=== PATIENT | female | born 2005 | race Caucasian/White ===

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

== ENCOUNTER 2023-09-21 16:26 | Emergency (ER) | payer MEDICAID, SELFPAY ==
[2023-09-21 16:27] VITALS: BP 129/79; PULSE 81; RESP 16; TEMP 36.4; O2SAT 100; BMI 28.3
--- NOTE | 2023-09-21 16:57 | EDS_ITS ---
HPI History of Present Illness Chief Complaint: General Illness Informant: patient and parent Narrative Narrative: 17-year-old female presenting to the emergency room with vomiting. Patient states that yesterday she was at work at the local [employer] where the area she was working in temperature was approaching 80 degrees. She states that after working for a while she began to get she will and needed to leave work. She has subsequently developed vomiting and nausea. She denies any abdominal pain. No cough runny nose sore throat or earache. She denies any rash. No diarrhea. She states that she has a frontal headache. She has been trying to drink fluids it has been difficult with the nausea. She does have concerns that she may be . No known sick contacts. [facility] Medical History Physical exam, pre-employment Home Medications ?Medication ?Instructions ?Recorded ?Last Taken ?Type ondansetron 4 mg disintegrating 4 mg PO Q6H PRN PRN Nausea #10 tabs 09/21/23 Unknown Rx tablet Allergy/AdvReac Type Severity Reaction Status Date / Time No Known Allergies Allergy Verified 09/21/23 16:26 Social History household members: family Smoking Status: Never smoker alcohol intake: never substance use type: does not use ROS ROS ED Constitutional Constitutional ED: Reports chills; Denies fever(s) or weight loss Eyes Eyes: Denies change in vision or diplopia ENT ENT ED: Denies ear pain, rhinorrhea or sore throat Cardiovascular Cardiovascular: Denies chest pain, orthopnea, palpitations or racing heartbeat Respiratory/Chest Respiratory/Chest: Denies cough, dyspnea or orthopnea Gastrointestinal Gastrointestinal: Reports nausea and vomiting; Denies abdominal pain or diarrhea Genitourinary Genitourinary ED: Denies dysuria, hematuria or urinary frequency Musculoskeletal Musculoskeletal: Denies arthralgias or myalgias Integumentary Denies abscess or rash Neurologic Neurologic: Reports headache(s); Denies weakness Psychiatric Psychiatric: Denies anxiety, depression, suicidal ideation or suicidal thoughts Endocrine Endocrinology: Denies polydipsia, polyphagia or polyuria Allergic/Immunologic Allergic/Immunologic ED: Denies mouth swelling, tongue swelling or urticaria EXAM Physical Exam Narrative Exam Narrative: Well-appearing 17-year-old female sitting comfortably in the bed. Patient is in not acute distress. Const Vital Signs: 09/21/23 16:27 09/21/23 16:29 09/21/23 18:29 Temperature 97.6 F L Temperature Source Temporal Pulse Rate 81 66 Respiratory Rate 16 16 Respiratory Effort Normal Respiratory Pattern Normal Blood Pressure 129/79 H 119/70 Blood Pressure Mean 95 86 Pulse Ox 100 100 Oxygen Delivery Method Room Air Room Air Positive well nourished and well developed General Appearance ED: well developed HEENT Reports normocephalic, head/scalp atraumatic and moist mucous membranes Eyes PERRL and EOMs intact bilaterally Eyes Narrative: No photophobia. Neck full ROM, No nuchal rigidity, no lymphadenopathy, supple, no meningeal signs and no JVD Resp normal respiratory effort and clear to auscultation bilaterally Cardio regular rate, regular rhythm and no murmurs GI normal to inspection, nondistended, normoactive bowel sounds and non-tender Palpation: soft Back/Spine no CVA tenderness and normal ROM Extremity normal to inspection General Extremety ED: Negative for edema General Extremity: Negative for edema Neuro oriented x3 and CN's II-XII intact bilaterally Sensorium / Orientation: alert Motor Exam: strength 5/5 throughout Psych mental status grossly normal Mood & Affect: Negative for depressed or tearful Skin no rashes or lesions noted and no wounds MDM MDM MDM Narrative Medical decision making narrative: Differential diagnosis includes but not limited to dehydration, heat exhaustion, viral illness, pancreatitis, biliary colic, colitis pancreatitis. IV established patient received Zofran and IV fluids. White count 5.8 hemoglobin 15.7. BMP within normal limits. LFTs and lipase normal. Urinalysis shows no overt infection. test is negative. Patient received a dose of Toradol for headache. COVID influenza and RSV swabs were obtained and were negative. At this point patient be discharged home with a prescription for Zofran. Would recommend rest continued oral hydration. History & Record Review Discussion w/independent historian: Patient and Family Lab Data Attestation: I reviewed the patient's lab results. Labs: Laboratory Results - last 24 hr 09/21/23 17:12 WBC 5.8 RBC 5.35 Hgb 15.7 H Hct 46.9 MCV 87.7 MCH 29.3 MCHC 33.5 RDW Std Deviation 39.2 RDW Coeff of Alecia 12.1 Plt Count 241 MPV 11.8 Immature Gran % (Auto) 0.300 Neut % (Auto) 67.9 Lymph % (Auto) 22.2 [place] % (Auto) 8.4 Eos % (Auto) 0.9 Baso % (Auto) 0.3 Absolute Neuts (auto) 4.0 Absolute Lymphs (auto) 1.29 Nucleated RBC % 0 Sodium 138 Potassium 3.8 Chloride 105 Carbon Dioxide 27.0 Anion Gap 6 BUN 9 Creatinine 0.65 Estim Creat Clear Calc 132.73 Est GFR (MDRD) Af Amer 150 Est GFR (MDRD) Non-Af 124 BUN/Creatinine Ratio 13.9 Glucose 106 Calcium 9.6 Total Bilirubin 0.50 Direct Bilirubin 0.12 AST 20 ALT 22 Alkaline Phosphatase 52 Total Protein 7.9 Albumin 4.3 Globulin 3.6 Lipase 28 Serum , Qual NEGATIVE Urine Color Yellow Urine Clarity Clear Urine pH 7.0 Ur Specific Hector 1.010 Urine Protein Negative Urine Glucose (UA) Normal Urine Ketones Negative Urine Occult Blood 10 H Urine Nitrite Negative Urine Bilirubin Negative Urine Urobilinogen Normal Ur Leukocyte Esterase 100 H Urine RBC 0 SEEN Urine WBC 0-5 SEEN Ur Squamous Epith Cells 0-5 SEEN Urine Bacteria RARE Urine Mucus 0 SEEN Discharge Plan Triage Chief Complaint: General Illness ED Provider: Tonio Marinelli Dx/Rx/DC Orders Clinical Impression: Vomiting Instructions: ED Vomiting (Adult) Prescriptions: New ondansetron 4 mg tablet,disintegrating 4 mg PO Q6H PRN PRN (Reason: Nausea) Qty: 10 0RF Primary Care Provider: Vernell Lam Referrals: Vernell Lam MD [Primary Care Provider] - As Needed Print Language: Yoruba Disposition Disposition: Home, Self Care
[2023-09-21] MEDS: 0.9% Normal Saline (1000mL) 1,000 ML 1000 ML IV (17:05)
[2023-09-21] MEDS: Ondansetron 4 MG/2 ML Vial IV (17:05)
[2023-09-21 17:15] LABS: Mucous, Urine 0 SEEN /hpf (<or=2+); Red Blood Cells-Urine 0 SEEN /hpf (0-5)
[2023-09-21 17:18] LABS: Color, Urine Yellow (Yellow); Glucose, Dipstick Normal (Normal); Ketone-Dipstick Negative (Negative); Leukocyte Esterase-Dipstick 100 /ul (Negative); Nitrite-Dipstick Negative (Negative); Occult Blood-Urine 10 /ul (Negative); Protein-Dipstick Negative (Negative); Urine Bilirubin Dipstick Negative (Negative); Urine Clarity Clear (Clear); Urine Urobilinogen Normal (Normal)
[2023-09-21 17:25] LABS: Internal QC Validated? YES +Cl - CLEAR BKGD; Pregnancy, Serum, hCG Quali. NEGATIVE Negative
[2023-09-21 17:26] LABS: Absolute Lymphocyte Count 1.29 X10^3/uL (0.83-4.51); Basophil# 0.02 X10^3/uL; Basophil% 0.3 % (0-1); Eosinophil# 0.05 X10^3/uL; Eosinophils% 0.9 % (0-5); Hematocrit 46.9 % (37-47); Hemoglobin 15.7 g/dL (12.0-15.0); Lymphocyte # 1.29 X10^3/ul (0.83-4.51); Lymphocyte % 22.2 % (19-41); Mean Corp Hgb Conc 33.5 g/dL (32-36); Mean Corpuscular Hgb 29.3 pg (27.0-32.0); Mean Corpuscular Volume 87.7 fL (81-99); Mean Platelet Vol. 11.8 fl (6.2-12.0); Monocyte# 0.49 X10^3/uL; Monocyte% 8.4 % (0-10); NRBC Flagged by Analyzer 0 % (0-5); Neutrophil # 3.95 X10^3/uL (2.7-7.7); Neutrophil % 67.9 % (47-70); Platelet Count 241 K/mm3 (150-450); RBC Distribution Width CV 12.1 % (11.6-14.6); RBC Distribution Width SD 39.2 fl (35.1-43.9); Red Blood Count 5.35 M/mm3 (4.2-5.4); White Blood Count 5.8 K/mm3 (4.4-11.0)
[2023-09-21 17:33] LABS: AST(SGOT) 20 U/L (15-37); Alanine Aminotransfer ALT/SGPT 22 U/L (13-56); Albumin, Serum 4.3 g/dL (3.2-5.0); Alkaline Phosphatase 52 U/L (45-117); Anion Gap 6 (5-15); BUN 9 mg/dL (7-18); BUN/Creat Ratio 13.9 RATIO (10-20); Bilirubin, Direct 0.12 mg/dL (0.00-0.30); Calcium,Total 9.6 mg/dL (8.5-10.1); Chloride 105 mmol/L (98-107); Creatinine, Serum 0.65 mg/dL (0.55-1.02); EST Glomerular Filtration Rate 124 mL/min (>60); Est Glom Filt Rate - Afr Amer 150 mL/min (>60); Estimated Creatinine Clearance 132.73 ml/min; Globulin 3.6 g/dL (2.2-4.2); Glucose 106 mg/dL (74-106); Lipase 28 U/L (13-75); Potassium 3.8 mmol/L (3.5-5.1); Protein, Total 7.9 g/dL (6.4-8.2); Sodium Level 138 mmol/L (136-145)
[2023-09-21 17:35] LABS: Bacteria RARE /hpf (None Seen); Squamous Epithelial Cells - UA 0-5 SEEN /hpf (5-10); White Blood Cells 0-5 SEEN /hpf (0-5)
[2023-09-21 18:29] VITALS: BP 119/70; PULSE 66; RESP 16; O2SAT 100
[2023-09-21] MEDS: Ketorolac 30 MG/ML Syringe IV (18:36)
[2023-09-21 19:27] VITALS: BP 110/75; PULSE 60; RESP 16; TEMP 36.6; O2SAT 100
== END 2023-09-21 19:28 | disposition home or self-care (01) ==
PROVIDERS: Emergency Provider Emergency Medicine; PCP Pediatrics; Visit Provider Emergency Medicine
DX: R11.2 Nausea with vomiting, unspecified (principal)
CPT/HCPCS: 80048; 80076; 81001; 83690; 84703; 85025; 87631; 96361; 96374; 96375; 99284; J7030; A4216; J2405

== ENCOUNTER 2023-10-26 11:20 | Emergency (ER) | payer OTHER, MEDICAID, SELFPAY ==
[2023-10-26 11:21] VITALS: BP 128/76; PULSE 92; RESP 14; TEMP 36.1; O2SAT 99
[2023-10-26 11:32] VITALS: O2SAT 98
--- NOTE | 2023-10-26 11:42 | CT_ITS ---
STUDY: CT BRAIN WITHOUT CONTRAST REASON FOR EXAM: Female, 18 years old. Injury RADIATION DOSAGE (If Supplied By Facility): CTDIvol = ( 45 ) mGy, DLP = ( 779 ) mGycm TECHNIQUE: Transaxial CT imaging of the brain was performed without administration of intravenous contrast material. Individualized dose optimization techniques were used for this CT. COMPARISON: No relevant prior comparison study available FINDINGS: PARENCHYMA: There is no acute bleed or infarct. There are normal white matter tracts. VENTRICLES: There is no hydrocephalus. MASTOID AIR CELLS AND PARANASAL SINUSES: The visualized paranasal sinuses are clear. The mastoid air cells are clear. BONES: There is no skull fracture. SOFT TISSUES: The visualized soft tissues are within normal limits. CT/Brain/Head without Contrast IMPRESSION: No acute intracranial abnormality. Electronically Signed: Narendra Coppola MD at 12:20 EDT ,
--- NOTE | 2023-10-26 13:13 | EX.ED.GENINJ ---
HPI History of Present Illness Chief Complaint: Head Injury Informant: patient Onset/Context/Timing Onset: Today Narrative Narrative: Patient presents from work secondary to head injury. She was helping a resident onto the commode. She reached for some gloves and hit her head on a metal bar behind the toilet. She complains of pain over the apex of her head and feels off balance when she walks. She states she did take some Tylenol for headache and it does seem to be improving. [facility] Medical History Physical exam, pre-employment Home Medications ?Medication ?Instructions ?Recorded ?Last Taken ?Type ondansetron 4 mg disintegrating 4 mg PO Q6H PRN PRN Nausea #10 tabs 09/21/23 Unknown Rx tablet Allergy/AdvReac Type Severity Reaction Status Date / Time No Known Allergies Allergy Verified 10/26/23 11:25 Social History household members: family Smoking Status: Never smoker alcohol intake: never substance use type: does not use ROS ROS ED Constitutional Constitutional ED: Denies chills or fever(s) Eyes Eyes: Denies change in vision ENT ENT ED: Denies rhinorrhea or sore throat Cardiovascular Cardiovascular: Denies chest pain or palpitations Respiratory/Chest Respiratory/Chest: Denies cough or dyspnea Gastrointestinal Gastrointestinal: Denies abdominal pain, nausea or vomiting Genitourinary Genitourinary ED: Denies dysuria Musculoskeletal Musculoskeletal: Denies back pain or extremity pain Integumentary Denies Abrasions or rash Neurologic Neurologic: Reports other Details: Feels off balance ; Denies headache(s) or weakness Psychiatric Psychiatric: Denies anxiety or depression Allergic/Immunologic Allergic/Immunologic ED: Denies lip swelling or urticaria EXAM Physical Exam Const Vital Signs: 10/26/23 11:21 10/26/23 11:32 Temperature 97 F L Temperature Source Temporal Pulse Rate 92 Respiratory Rate 14 Respiratory Effort Normal Blood Pressure 128/76 H Blood Pressure Mean 93 Pulse Ox 99 98 Oxygen Delivery Method Room Air Room Air Positive well nourished and well developed General Appearance ED: well developed HEENT HEENT Narrative: Mild scalp tenderness over the midline parietal scalp. No hematoma, ecchymosis, or abrasion. Eyes EOMs intact bilaterally Neck full ROM Neck Narrative: No C-spine tenderness. Chest Wall inspection of chest normal and palpation of chest normal Resp normal respiratory effort and clear to auscultation bilaterally Cardio regular rhythm Rate: regular rate GI non-tender Palpation: soft Back/Spine normal to inspection Extremity normal to inspection Neuro oriented x3 and moves all extremities Psych mental status grossly normal Skin no rashes or lesions noted MDM MDM MDM Narrative Medical decision making narrative: CT scan of the head obtained. No acute intracranial abnormality noted on read. Test results discussed with the patient. We did discuss mild concussion symptoms. She can return to work and was able to sit or stand as needed for comfort. She can take Tylenol or ibuprofen as needed for headache. She will follow-up with [facility]. Radiography Diagnostic Testing: Clinical Impression(s) from Imaging Studies Brain CT 10/26/23 11:42 IMPRESSION: No acute intracranial abnormality. Electronically Signed: Narendra Coppola MD at 12:20 EDT Reading Location ID and State: [facility] / [place] Tel , Service support , Discharge Plan Triage Chief Complaint: Head Injury ED Provider: Gricelda Carreon Dx/Rx/DC Orders Clinical Impression: Closed head injury Instructions: ED Concussion, ED Head Injury (Adult) Prescriptions: No Action ondansetron 4 mg tablet,disintegrating 4 mg PO Q6H PRN PRN (Reason: Nausea) Qty: 10 0RF Stand Alone Forms: Work Status Form Primary Care Provider: Vernell Lam Referrals: Corporate,[facility] [Group of Physicians] - 3-5 Days Vernell Lam MD [Primary Care Provider] - Print Language: Wolof Disposition Disposition: Home, Self Care
[2023-10-26 13:25] VITALS: BP 107/69; PULSE 64; RESP 16; TEMP 36.2; O2SAT 100
== END 2023-10-26 13:26 | disposition home or self-care (01) ==
PROVIDERS: Emergency Provider Emergency Medicine; PCP Pediatrics; Visit Provider Emergency Medicine
DX: S09.90XA Unspecified injury of head, initial encounter (principal); W22.09XA Striking against other stationary object, initial encounter; Y93.F9 Activity, other caregiving; Y99.0 Civilian activity done for income or pay
CPT/HCPCS: 70450; 99282

== ENCOUNTER 2024-05-18 11:45 | Emergency (ER) | payer MEDICAID, SELFPAY ==
[2024-05-18 11:46] VITALS: BP 130/79; PULSE 113; PULSE 122; RESP 20; TEMP 36.1; O2SAT 100
[2024-05-18 12:00] VITALS: BMI 28.5
[2024-05-18] MEDS: Lidocaine 1% /Epi 1:100 (20ml) 20 ML Vial INFILT (12:18)
--- NOTE | 2024-05-18 12:47 | EDS_ITS ---
HPI History of Present Illness Chief Complaint: Other, Pain/Inj Narrative Narrative: Chief complaint and HPI: Infected pilonidal cyst. 18-year-old female with no significant past medical history except for previous pilonidal cyst presents for evaluation of infected pilonidal cyst. Patient states several years ago she was diagnosed with a pilonidal cyst that became infected. She states that she had an incision and drainage in the emergency department without any difficulty. She is never followed up with a surgeon. She states over the last several days the area has become more swollen, red, tender which is why she presents she denies any fever, chills, nausea, vomiting, diarrhea, constipation. Review of systems: See HPI Medications: As listed on the chart Allergies: As listed on the chart PFSH: Per chart Vital signs: As listed on the chart. Reviewed. Physical exam: Gen: A&O x3, NAD Head: Normocephalic, atraumatic Eyes: No sclera icterus, conjunctiva clear ENT: Moist mucous membranes CV: Regular Resp: Nonlabored respiration GI: Abd soft, non-distended, non-tender, no r/r/g Musc: Full ROM, no deformity, patient has a 3 x 2 cm pilonidal cyst that is tender, erythematous, warm, and fluctuant Skin: Warm, dry Neuro: Alert, oriented, grossly intact, sensation intact Psych: Cooperative, appropriate mood and affect [facility] Medical History (Updated 05/18/24 @ 12:[address] Carter Rahman DO) Anxiety Physical exam, pre-employment Home Medications ?Medication ?Instructions ?Recorded ?Last Taken ?Type ondansetron 4 mg disintegrating 4 mg PO Q6H PRN PRN Nausea #10 tabs 09/21/23 Unknown Rx tablet Allergy/AdvReac Type Severity Reaction Status Date / Time No Known Allergies Allergy Verified 05/18/24 11:46 Social History household members: family Smoking Status: Never smoker alcohol intake: never substance use type: does not use EXAM Physical Exam Const Vital Signs: 05/18/24 11:46 05/18/24 11:46 05/18/24 11:59 Temperature 97 F L Temperature Source Temporal Pulse Rate 113 H 122 H Respiratory Rate 20 H Respiratory Effort Normal Non-Labored Respiratory Pattern Normal Blood Pressure 130/79 H Blood Pressure Mean 96 Pulse Ox 100 Oxygen Delivery Method Room Air MDM MDM MDM Narrative Medical decision making narrative: 18-year-old female with no significant past medical history except for previous pilonidal cyst presents for evaluation of infected pilonidal cyst. See physical exam findings. Patient will require an incision and drainage of her pilonidal cyst. Given that this has been recurrent. She will need to follow-up with [facility] surgery for surgical incision/removal in the future. She confirmed understanding. Patient tolerated incision and drainage well. Packing was placed. She was educated that packing needs to be removed in 24 hours. Okay to shower. Motrin Tylenol as needed for pain. Monitor for signs of infection. Follow-up with general surgery. Return precautions explained. She confirmed understanding of plan. Incision and Drainage Indication: 3 cm x 2 centimeter infected pilonidal cyst Consent: Risks, benefits, and alternatives discussed with patient and consent obtained Procedure: A timeout was performed verifying correct patient, procedure, site, and positioning. The area was prepared and draped in the usual sterile manner. The site was anesthetized with 1% lidocaine with epinephrine. A linear incision was made in the skin where previous scar is and copious malodorous purulent material was expressed. The abscess was explored thoroughly, and sequestered pockets were opened. The abscess pocket was irrigated. Bleeding was minimal. The patient tolerated the procedure well without complications. Packin/2 inch iodoform packing Follow-Up: Standard post-procedure care was explained and return precautions were given Impression: 1. Infected pilonidal cyst Discharge Plan Triage Chief Complaint: Other, Pain/Inj ED Provider: Carter Rahman Dx/Rx/DC Orders Clinical Impression: Infected pilonidal cyst Instructions: ED Pilonidal Cyst Infec I&D Prescriptions: No Action ondansetron 4 mg tablet,disintegrating 4 mg PO Q6H PRN PRN (Reason: Nausea) Qty: 10 0RF Stand Alone Forms: ED Work / School Excuse, Work Status Form Primary Care Provider: Vernell Lam Referrals: Vernell Lam MD [Primary Care Provider] - 3-5 Days Alex Weber MD [Med Staff - Active Staff] - 3-5 Days Activity Restrictions/Additional Instructions: No swimming pools, hot tubs, lakes, ureña until fully healed. Okay to shower in 24 hours. Pull packing out in 24 hours. Dressing as needed. Monitor for recurrent signs of infection. Motrin and Tylenol as needed for pain. Follow-up with general surgery for pilonidal cyst removal. Return back to the ED if symptoms change or worsen. Print Language: Pashto Disposition Disposition: Home, Self Care
== END 2024-05-18 12:56 | disposition home or self-care (01) ==
PROVIDERS: Emergency Provider Surgery; PCP Pediatrics; Visit Provider Surgery
DX: L05.01 Pilonidal cyst with abscess (principal)
CPT/HCPCS: 10080; 99283; A4216

== ENCOUNTER 2024-12-23 11:00 | Emergency (ER) | payer SELFPAY ==
[2024-12-23 11:00] VITALS: BP 133/81; PULSE 101; PULSE 111; RESP 14; TEMP 36.2; O2SAT 98; BMI 30.9
--- NOTE | 2024-12-23 11:15 | EX.ED.DYSGE1 ---
HPI <GAMALIEL Chilel - Last Filed: 12/23/24 11:42> History of Present Illness Chief Complaint: Anxiety Narrative Narrative: 19-year-old female states her anxiety has been increasing and she had an anxiety attack last night and this morning at work. With both episodes the right side of her face felt numb and tingly. The right sided paresthesias were worse at work and seem to be resolving now that she has arrived here. She does not take any medications or anything for anxiety. She denies chest pain, shortness of breath, nausea or vomiting. She has no visual or speech changes and no symptoms in her arms or legs. [facility] <GAMALIEL Chilel - Last Filed: 12/23/24 11:42> [facility] Medical History (Updated 12/23/24 @ 11:19 by GAMALIEL Chilel) Anxiety Physical exam, pre-employment Home Medications ?Medication ?Instructions ?Recorded ?Last Taken ?Type hydroxyzine HCl 50 mg tablet 50 mg PO BID PRN anxiety #10 tabs 12/23/24 Unknown Rx Allergy/AdvReac Type Severity Reaction Status Date / Time No Known Allergies Allergy Verified 12/23/24 11:00 Social History household members: family Smoking Status: Never smoker alcohol intake: never substance use type: does not use ROS <GAMALIEL Chilel - Last Filed: 12/23/24 11:42> ROS ED ROS Narrative Constitutional: Negative for fever, chills, malaise. Eyes: Negative for visual change. CVS: Negative for chest pain Respiratory: Negative for shortness of breath. GI: Negative for abdominal pain, nausea, vomiting. Neuro: Negative for headache. EXAM <GAMALIEL Chilel - Last Filed: 12/23/24 11:42> Physical Exam Narrative Exam Narrative: CONST: Patient sitting in no acute distress. EYES: Normal inspection. PERRL, EOMI. NECK: Normal inspection. RESP: No respiratory distress, CTAB. CVS: Regular rate and rhythm, no murmur, no gallop. SKIN: Color normal, no rash, warm, dry, intact. EXTREMITIES: Normal appearance, no pedal edema. NEURO: Alert and answering questions appropriately. Face symmetric, cranial nerves II through XII grossly intact. Normal sensation to light touch on both sides of her face in all dermatomes. No upper or lower extremity drift, normal [id number] and [id number], normal speech. PSYCH: Normal affect. Const Vital Signs: 12/23/24 11:00 12/23/24 11:00 Temperature 97.1 F L Temperature Source Temporal Pulse Rate 101 H 111 H Respiratory Rate 14 Blood Pressure 133/81 H Blood Pressure Mean 98 Pulse Ox 98 Oxygen Delivery Method Room Air <Dr. James Jaime MD - Last Filed: 12/23/24 11:41> Physical Exam Const Vital Signs: 12/23/24 11:00 12/23/24 11:00 Temperature 97.1 F L Temperature Source Temporal Pulse Rate 101 H 111 H Respiratory Rate 14 Blood Pressure 133/81 H Blood Pressure Mean 98 Pulse Ox 98 Oxygen Delivery Method Room Air MDM <GAMALIEL Chilel - Last Filed: 12/23/24 11:42> [facility] MDM Narrative Medical decision making narrative: History gathered from: Patient, mom 19-year-old female states she has episodes of an anxiety attack and hyperventilation and then developed right-sided facial numbness and tingling that resolved. This is occurred twice in the last 24 hours. She has no other neurological symptoms, no visual changes, no headache. She is awake and alert no distress. She is calm while speaking to me and states her symptoms are resolving. She can feel me touching both sides of her face equally. She has a completely normal neurological exam with NIH of 0. I think this is an anxiety reaction and am not concerned for stroke or evangelista's palsy. I recommended PCP follow up and prescribed hydroxyzine as needed. History & Record Review Discussion w/independent historian: Patient and Family Additional record(s) reviewed:: Prior ED visit <Dr. James Jaime MD - Last Filed: 12/23/24 11:41> [facility] Treatment and Re-Evaluation Comments:: I have personally performed a face to face assessment of the patient and have reviewed the HARRISON Note. I performed a substantive portion of the visit including all aspects of the following. 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 She was hyperventilating. Shortly thereafter she started having tingling. She is now with family and calm and the symptoms gradually resolved after she calm down. Asymptomatic at this time. Exam is well-appearing, normal neurologic exam, normal breathing, lungs clear to auscultation Medical Decison Making reassured, will prescribe prn Vistaril. Other additions or changes: [None] Discharge Plan Triage Chief Complaint: Anxiety ED Midlevel Provider: Uma Alfaro ED Provider: James Jaime Dx/Rx/DC Orders Clinical Impression: Facial paresthesia, Anxiety reaction Instructions: Anxiety Disorders Tx Prescriptions: New hydroxyzine HCl 50 mg tablet 50 mg PO BID PRN (Reason: anxiety) Qty: 10 0RF Primary Care Provider: Care Physician,No Primary Referrals: [facility] [Provider Group] Vernell Lam MD [Non-Staff] - Activity Restrictions/Additional Instructions: I think your symptoms are related to your anxiety attack. I recommend you slowly cut back on caffeine as this can be a big anxiety trigger. Follow-up with a primary care doctor for further care. Print Language: [place] Disposition Disposition: Home, Self Care
--- NOTE | 2024-12-23 11:48 | CM.ED ---
Social work Reason for referral: resources Referral source: case find SW entered patient's room, identifying self and role at [facility]. Patient welcomed SW visit and stated ability to talk with patient's mother and friend at bedside. SW provided resources of local counseling agencies, anxiety coping skills, grounding exercises, [facility] Provider Directory, Tia Brumfield information, and how to apply for Medicaid information. Patient and patient's mother denied further needs at this time. Marva Hendrickson, FIELD SALES ENGINEER, BOOK[employer]BILE DRIVER
[2024-12-23 11:49] VITALS: BP 132/81; PULSE 94; RESP 16; TEMP 36.6; O2SAT 100
== END 2024-12-23 11:53 | disposition home or self-care (01) ==
PROVIDERS: Emergency Provider Emergency Medicine; Visit Provider Emergency Medicine
DX: F41.9 Anxiety disorder, unspecified (principal); R20.2 Paresthesia of skin
CPT/HCPCS: 99282